=== PATIENT | female | born 1960 | race Caucasian/White ===

== ENCOUNTER 2017-12-14 16:27 | Emergency (ER) | payer MEDICARE, SELFPAY ==
[2017-12-14 16:28] VITALS: BP 128/67; PULSE 110; RESP 14; TEMP 37.1; O2SAT 99; BMI 18.5
--- NOTE | 2017-12-14 16:41 | RAD_ITS ---
STUDY: X-RAY - LEFT WRIST REASON FOR EXAM: Female, 57 years old. Injury. Dog bite. TECHNIQUE: 3 view(s) of the wrist were obtained. COMPARISON: 07/29/2017. FINDINGS: No acute fracture or dislocation. Old ununited fracture of the ulnar styloid. Deformity of the distal radial metaphysis with dorsal angulation of the articular surface, stable and related to previous fracture. No soft tissue air. No radiopaque foreign bodies. RAD/Wrist min 3 Views IMPRESSION: No acute abnormality or change. Electronically Signed: Bob Cintron MD at 20:06 EDT , Service support ,
[2017-12-14] MEDS: HYDROcodone Bitartrate/Apap 5/325 Tablet PO (16:46)
[2017-12-14] MEDS: Amox/Clavulanate 875 MG Tablet PO (16:47)
--- NOTE | 2017-12-14 16:50 | RAD_ITS ---
STUDY: X-RAY - RIGHT HAND REASON FOR EXAM: Female, 57 years old. Injury. TECHNIQUE: 3 view(s) of the hand. COMPARISON: None. FINDINGS: Normal radiocarpal articulation. Normal distal radioulnar joint. Normal visualized carpal bones. Normal carpal articulations Normal carpometacarpal articulation of the thumb. Normal second through fifth carpometacarpal joints. Normal metacarpi. Normal metacarpophalangeal joint of the thumb. Normal interphalangeal joint of the thumb. Normal proximal and distal phalanges of the thumb. Normal metacarpophalangeal joints of the second through fifth fingers. Normal proximal and distal interphalangeal joints of the second through fifth fingers. Normal phalanges of the second through fifth fingers. The soft tissue structures are unremarkable. RAD/Hand Min 3 Views IMPRESSION: Normal x-ray examination of the hand. Electronically Signed: Bob Cintron MD at 20:02 EDT , Service support ,
[2017-12-14] MEDS: Morphine 4 MG/ML Syringe IM (17:36)
--- NOTE | 2017-12-14 18:04 | ED.VISSUMM ---
- ER Visit Summary Date of Service: 12/14/17 Chief Complaint: [Dog bite left wrist] History of Present Illness: The patient is a 57 F [presents to the emergency department after sustaining a dog bite to her left wrist around midnight last night. Patient states that she got between HER-2 dogs were fighting and was bitten on the left wrist. Patient also states that yesterday she had a fall on her porch and skin her left knee and injured her right small finger and hand. Patient unsure of her last tetanus shot. Patient has been ambulatory. Patient is right-hand dominant.] Physical Examination: [HEENT-PERRLA, EOMI. Cranial nerves II through XII grossly intact. TMs clear. Mucous membranes moist. No adenopathy. Cardiovascular-regular rate and rhythm without murmur or ectopy Lungs-clear to auscultation, chest wall stable without crepitus or subcu emphysema Abdomen-normoactive bowel sounds, soft, nontender, no rebound or rigidity, no peritoneal signs. Extremities-intact ?4, normal range of motion, normal pulses. Left wrist-patient has puncture wound on the volar and dorsal aspect with soft tissue swelling noted. The puncture wound appears to be lateral to the ulnar artery as she has normal distal ulnar pulse and proximal. Patient has normal range of motion at the wrist with range of motion of all digits and normal sensation in all digits. Patient has normal cap refill. While occluding the radial artery patient still has normal cap refill in all digits. Patient has a small linear red streak from the volar aspect bite wound proximally up the forearm approximately 8 cm. Evaluation of the right hand-patient has some tenderness over the small finger PIP joint with no obvious deformity noted. Neurovascularly intact. Left knee-patient has superficial skin abrasions noted with no bony tenderness on exam. Neurovascularly intact. Test Results: [X-ray of the left wrist obtained read by myself because our teleradiology system is down and I do not appreciate any foreign bodies within the wound. X-rays of the right hand was interpreted by myself as well and I do not appreciate any fractures.] Emergency Department Course and Treatment: [Patient was started on Augmentin in the emergency department]. Patient was given Adacel. Patient was given [place] for pain and a shot of morphine. Case was discussed with Dr. Galileo Alvarez who is on for orthopedics and has seen this patient in the past. Dr. Galileo Alvarez asked that patient be seen in his office in 3 days. Treatment Plan: [Patient was given a wrist splint and will be given a prescription for [place] and Augmentin] Disposition: [Discharged home in stable condition] Impression: [Dog bite left wrist Right small finger sprain Left knee abrasion] This note was generated with [employer] dictation software. It may contain incorrect words, spelling, and punctuation that were not noted in review of the chart prior to signing ED Disposition - Plan for ED Patient: Chief Complaint: Bite Referrals: Rebeka Valle [Primary Care Provider] -
--- NOTE | 2017-12-14 18:13 | DCINST.ED_ITS ---
ED Disposition - Plan for ED Patient: Chief Complaint: Bite Instructions: ED Bite Dog, ED Sprain Finger, ED Abrasion Prescriptions: Amox/Clavulanate Tablet [Augmentin Tablet] 875 mg PO Q12H #20 tab Hydrocodone/Acetaminophen [[place] 5-325 Tablet] 1 - 2 ea PO 4X/DAY PRN PRN 5 Days #20 tab PRN Reason: Pain Referrals: [facility],Rebeka Dockery [Primary Care Provider] - Galileo Alvarez DO [STAFF PHYSICIAN] - 12/17/17
[2017-12-14] MEDS: Diphth,Pertuss(Acell),Tet Vac 0.5 ML Vial IM (18:18)
[2017-12-14 18:28] VITALS: BP 127/67; PULSE 82; RESP 18; O2SAT 96
== END 2017-12-14 18:28 | disposition home or self-care (01) ==
PROVIDERS: Emergency Provider Emergency Medicine
DX: S63.614A Unspecified sprain of right ring finger, initial encounter (principal); S80.212A Abrasion, left knee, initial encounter; W54.0XXA Bitten by dog, initial encounter; W18.30XA Fall on same level, unspecified, initial encounter; Y93.9 Activity, unspecified; Y92.009 Unspecified place in unspecified non-institutional (private) residence as the place of occurrence of the external cause; Y99.9 Unspecified external cause status; Z72.0 Tobacco use
CPT/HCPCS: 73110; 73130; 90471; 90715; 99283

== ENCOUNTER 2018-01-01 17:05 | Emergency (ER) | payer MEDICARE, SELFPAY ==
[2018-01-01 17:06] VITALS: BP 139/95; PULSE 103; RESP 16; TEMP 36.4; O2SAT 97; BMI 18.8
--- NOTE | 2018-01-01 17:10 | RAD_ITS ---
STUDY: X-RAY - RIGHT ELBOW REASON FOR EXAM: Female, 57 years old. Trauma TECHNIQUE: 3 view(s) of the elbow. COMPARISON: None. FINDINGS: Normal visualized humerus, radius and ulna. Normal radiocapitellar and ulnotrochlear articulations. The soft tissue structures are unremarkable. RAD/Elbow min 3 Views IMPRESSION: Normal x-ray examination of the elbow. Electronically Signed: Derian Bryant MD at 17:47 EDT , Service support ,
--- NOTE | 2018-01-01 17:10 | RAD_ITS ---
STUDY: X-RAY - RIGHT SHOULDER REASON FOR EXAM: Female, 57 years old. Trauma TECHNIQUE: 4 view(s) of the shoulder. COMPARISON: None. FINDINGS: Normal glenohumeral articulation. Normal acromioclavicular joint. Normal acromion. Normal humeral head and visualized proximal humerus. The soft tissue structures are unremarkable. Normal visualized pulmonary apex. RAD/Shoulder min 2 Views IMPRESSION: Normal x-ray examination of the shoulder. Electronically Signed: Derian Bryant MD at 17:56 EDT , Service support ,
--- NOTE | 2018-01-01 17:20 | RAD_ITS ---
STUDY: X-RAY - RIGHT HAND REASON FOR EXAM: Female, 57 years old. Trauma TECHNIQUE: 3 view(s) of the hand. COMPARISON: Previous study of 12/14/2017 FINDINGS: Normal radiocarpal articulation. Normal distal radioulnar joint. Normal visualized carpal bones. Normal carpal articulations Normal carpometacarpal articulation of the thumb. Normal second through fifth carpometacarpal joints. There is a nondisplaced spiral fracture of the fifth metacarpal shaft. Normal metacarpophalangeal joint of the thumb. Normal interphalangeal joint of the thumb. Normal proximal and distal phalanges of the thumb. Normal metacarpophalangeal joints of the second through fifth fingers. Normal proximal and distal interphalangeal joints of the second through fifth fingers. Normal phalanges of the second through fifth fingers. The soft tissue structures are unremarkable. RAD/Hand Min 3 Views IMPRESSION: Nondisplaced spiral fracture of the fifth metacarpal shaft. Electronically Signed: Derian Bryant MD at 17:48 EDT , Service support ,
--- NOTE | 2018-01-01 20:40 | RAD_ITS ---
STUDY: X-RAY - CERVICAL SPINE REASON FOR EXAM: Female, 57 years old. Trauma, neck pain TECHNIQUE: 4 view(s) of the cervical spine were obtained. COMPARISON: Previous study of December 13, 2016 FINDINGS: Normal anterior atlantoaxial articulation. Normal odontoid process. Normal cervical lordosis. There is endplate spondylosis of C3-C7. There is narrowing of the C4-5, C5-6, and C6-7 disc spaces. The soft tissue structures are unremarkable. RAD/Cerv Spine 2 or 3 Views IMPRESSION: Multilevel degenerative changes as detailed above. There is no evidence of fracture or subluxation. The degree of degenerative disease has slightly increased in severity from the previous study. Electronically Signed: Derian Bryant MD at 21:27 EDT , Service support ,
--- NOTE | 2018-01-01 20:59 | ED.DCSUM_ITS ---
- ER Visit Summary Date of Service: 01/01/18 Chief Complaint: Fall History of Present Illness: The patient is a 57 F who states she tripped on concrete and fell, landing on her right side. She is complaining of some neck pain, right shoulder pain, and right hand pain. She denies directly striking her head or loss of consciousness. She is not on anticoagulants. She is right- hand dominant. Physical Examination: Vital signs are unremarkable. Head and neck examination reveals no external sign of trauma. She does have reproducible tenderness in the low C-spine midline as well as in the paraspinals. Heart is regular rate and rhythm. Lung sounds are clear. There is no chest wall tenderness. Abdomen is soft nontender. Right upper extremity examination was a small abrasion to the right shoulder with full range of motion. There is no focal tenderness of the elbow on my exam. She does have tenderness with some mild edema over the fifth metacarpal region of the right hand. She has good cap refill and sensation distally. Left upper external examination reveals chronic deformity to the left wrist without focal pain. Lower extremity examination reveals a small abrasion to the left knee that patient states is prior fall. Test Results: Right hand x-rays reveal a nondisplaced spiral fracture the fifth metacarpal. Right elbow x-rays are unremarkable. Right shoulder x-rays unremarkable. C-spine x-rays revealed degenerative changes with no fracture. Emergency Department Course and Treatment: Patient was given a single type of [place] here. An ulnar gutter splint was placed on the right hand. Following splint application she has good cap refill in fingertips. Patient is known to Dr. Alvarez and will follow-up in the office. Treatment Plan: [] Disposition: Discharge Impression: Closed right fifth metacarpal fracture status post mechanical fall This note was generated with [employer] dictation software. It may contain incorrect words, spelling, and punctuation that were not noted in review of the chart prior to signing ED Disposition - Plan for ED Patient: Disposition: Home or Assisted Living Chief Complaint: Fall Instructions: ED Fx Hand Closed Prescriptions: Hydrocodone Bitart/Apap 5-325 [[place] 5MG-325MG] 1 tablet PO Q6H PRN PRN 5 Days # 20 tablet PRN Reason: Pain Referrals: Galileo Alvarez DO [STAFF PHYSICIAN] - 5-7 Days [facility],Rebeka Dockery [NON-STAFF] -
--- NOTE | 2018-01-01 20:59 | ED.DEP ---
ED Disposition - Plan for ED Patient: Disposition: Home or Assisted Living Chief Complaint: Fall Instructions: ED Fx Hand Closed Prescriptions: Hydrocodone Bitart/Apap 5-325 [[place] 5MG-325MG] 1 tablet PO Q6H PRN PRN 5 Days #20 tablet PRN Reason: Pain Referrals: [facility],Rebeka Dockery [Primary Care Provider] - Galileo Alvarez DO [STAFF PHYSICIAN] - 5-7 Days
--- NOTE | 2018-01-01 21:02 | DCINST.ED_ITS ---
ED Disposition - Plan for ED Patient: Disposition: Home or Assisted Living Chief Complaint: Fall Instructions: ED Fx Hand Closed Prescriptions: Hydrocodone Bitart/Apap 5-325 [[place] 5MG-325MG] 1 tablet PO Q6H PRN PRN 5 Days # 20 tablet PRN Reason: Pain Referrals: [facility],Rebeka Dockery [Primary Care Provider] - Galileo Alvarez DO [STAFF PHYSICIAN] - 5-7 Days
[2018-01-01] MEDS: HYDROcodone Bitartrate/Apap 5/325 Tablet PO (21:13)
--- NOTE | 2018-01-01 21:16 | ED.RN ---
DISCHARGE INSTRUCTIONS GIVEN TO AND REVIEWED WITH PATIENT, PATIENT DENIES QUESTIONS OR CONCERNS AND VOICES UNDERSTANDING OF DISCHARGE INSTRUCTIONS. PT AMBULATES OUT OF ROOM WITHOUT DIFFICULTY.
== END 2018-01-01 21:18 | disposition home or self-care (01) ==
PROVIDERS: Emergency Provider Emergency Medicine; Family Provider Nurse Practitioner Family; PCP Nurse Practitioner Family
DX: S62.356A Nondisplaced fracture of shaft of fifth metacarpal bone, right hand, initial encounter for closed fracture (principal); W01.0XXA Fall on same level from slipping, tripping and stumbling without subsequent striking against object, initial encounter; Y93.9 Activity, unspecified; Y92.89 Other specified places as the place of occurrence of the external cause; Y99.9 Unspecified external cause status; K21.9 Gastro-esophageal reflux disease without esophagitis; F32.9 Major depressive disorder, single episode, unspecified; F41.9 Anxiety disorder, unspecified; Z87.891 Personal history of nicotine dependence; S80.212A Abrasion, left knee, initial encounter; S40.211A Abrasion of right shoulder, initial encounter
CPT/HCPCS: 72040; 73030; 73080; 73130; 99283

== ENCOUNTER 2018-01-18 12:26 | Emergency (ER) | payer MEDICARE, SELFPAY ==
--- NOTE | 2018-01-18 12:26 | DT_ITS ---
This patient was seen during an EMR downtime January 11, 2018 - January 18, 2018. This patient may have a combination of paper and electronic documentation or all paper documentation. All documentation is viewable within the e-chart portion of [employer] for each patient visit.
[2018-01-18 12:27] VITALS: BP 122/85; PULSE 87; RESP 16; TEMP 36.1; O2SAT 100; BMI 18.8
--- NOTE | 2018-01-18 13:55 | ED.VIS.GEN ---
History of Present Illness Chief Complaint: Upper Extremity Injury Informant: Patient Onset: Weeks - 2 Quality: ache/sore Location: R hand Current Severity: Moderate Maximum Severity: Moderate Worsened by: n/a Relieved by: n/a Associated Symptoms: wound Narrative: Patient states that she broke her right fifth metacarpal and was casted 2 weeks ago after being seen in the ER, and since having the cast has developed wounds from the cast rubbing on other areas of her hand. Pain is increased because of this. She has been using Tylenol with codeine but not helping much. Try to call orthopedics but no one was available. No fevers or new symptoms. - Past Medical History (1) Anxiety Status: Chronic (2) Depression Status: Chronic (3) GERD (gastroesophageal reflux disease) Status: Chronic (4) Generalized-onset seizures Status: Chronic (5) History of Herniated Lumbar Disc Status: Chronic (6) Panic attacks Status: Chronic Past Medical History - Allergies and Home Meds Allergies/Adverse Reactions: Allergies ciprofloxacin [From Cipro] Allergy (Verified 12/14/17 16:28) Itching ciprofloxacin HCl [From Cipro] Allergy (Verified 12/14/17 16:28) Itching Sulfa (Sulfonamide Antibiotics) Allergy (Verified 12/14/17 16:28) Itching Primary Care Physician: Asuncion Vásquez DO [STAFF PHYSICIAN] - (tomorrow at 8am) Surgical History: no surgical history Smoking Status: Former smoker Review of Systems General: Denies: Chills, Fever Musculoskeletal: Reports: Extremity Pain - right hand Skin: Reports: Wounds Neurological: Reports: Parasthesia - hand but not fingers Physical Exam Vital Signs/Narrative: Vital Signs Temp Pulse Resp BP Pulse Ox 01/18/18 12:27 97.0 F L 87 16 122/85 H 100 Inital Vital Signs reviewed: Yes General: Well nourished, Well developed Head: Normocephalic, Atraumatic Skin: Normal color, - - ulcerated, tender but not infected wound 1cm diam at ulnar aspect of right long finger, where nearby cast is rubbing / placing pressure. no other wounds. Diagnostic/Tx/Re-eval - Medical Decision Making After discussing with Dr. De Jesus, who stated it was okay to remove the cast, I removed the cast. There is a small closed mechanical blister on the volar aspect of the thumb where the cast was also rubbing, however it appears benign otherwise. The wound on her long finger is dressed with bacitracin, and I replaced the cast with a Ortho-Glass splint, there is soft material against/near this ulcerated wound on her long finger. She will follow-up with orthopedics as an outpatient. Procedures - Upper Extremity Splints Upper Extremity Splint: Orthoglass, Ulnar gutter - NVID after placement Splint Fabrication: Fabricated Location: Right Procedure(s): Cast removal w/ cast saw -- no signs of skin breakdown, no other skin lesions seen. ED Disposition - Plan for ED Patient: Disposition: Home or Assisted Living Chief Complaint: Upper Extremity Injury Diagnosis: Open wound of finger of right hand, Cast discomfort, Closed fracture of fifth metacarpal bone of right hand Instructions: Wound Care, ED Splint Care Plaster Prescriptions: Hydrocodone Bitart/Apap 5-325 [[place] 5MG-325MG] 1 tab PO Q4H PRN PRN 1 Days #6 tab PRN Reason: Pain Referrals: Asuncion Vásquez DO [STAFF PHYSICIAN] - (tomorrow at 8am, or may follow up w/ Dr. Alvarez within next 1-2 weeks)
--- NOTE | 2018-01-18 14:04 | ED.DCSUM_ITS ---
History of Present Illness Chief Complaint: Upper Extremity Injury Informant: Patient Onset: Weeks - 2 Quality: ache/sore Location: R hand Current Severity: Moderate Maximum Severity: Moderate Worsened by: n/a Relieved by: n/a Associated Symptoms: wound Narrative: Patient states that she broke her right fifth metacarpal and was casted 2 weeks ago after being seen in the ER, and since having the cast has developed wounds from the cast rubbing on other areas of her hand. Pain is increased because of this. She has been using Tylenol with codeine but not helping much. Try to call orthopedics but no one was available. No fevers or new symptoms. - Past Medical History (1) Anxiety Status: Chronic (2) Depression Status: Chronic (3) GERD (gastroesophageal reflux disease) Status: Chronic (4) Generalized-onset seizures Status: Chronic (5) History of Herniated Lumbar Disc Status: Chronic (6) Panic attacks Status: Chronic Past Medical History - Allergies and Home Meds Allergies/Adverse Reactions: Allergies ciprofloxacin [From Cipro] Allergy (Verified 12/14/17 16:28) Itching ciprofloxacin HCl [From Cipro] Allergy (Verified 12/14/17 16:28) Itching Sulfa (Sulfonamide Antibiotics) Allergy (Verified 12/14/17 16:28) Itching Primary Care Physician: Asuncion Vásquez DO [STAFF PHYSICIAN] - (tomorrow at 8am) Surgical History: no surgical history Smoking Status: Former smoker Review of Systems General: Denies: Chills, Fever Musculoskeletal: Reports: Extremity Pain - right hand Skin: Reports: Wounds Neurological: Reports: Parasthesia - hand but not fingers Physical Exam Vital Signs/Narrative: Vital Signs Temp Pulse Resp BP Pulse Ox 01/18/18 12:27 97.0 F L 87 16 122/85 H 100 Inital Vital Signs reviewed: Yes General: Well nourished, Well developed Head: Normocephalic, Atraumatic Skin: Normal color, - - ulcerated, tender but not infected wound 1cm diam at ulnar aspect of right long finger, where nearby cast is rubbing / placing pressure. no other wounds. Diagnostic/Tx/Re-eval - Medical Decision Making After discussing with Dr. De Jesus, who stated it was okay to remove the cast , I removed the cast. There is a small closed mechanical blister on the volar aspect of the thumb where the cast was also rubbing, however it appears benign otherwise. The wound on her long finger is dressed with bacitracin, and I replaced the cast with a Ortho-Glass splint, there is soft material against/ near this ulcerated wound on her long finger. She will follow-up with orthopedics as an outpatient. Procedures - Upper Extremity Splints Upper Extremity Splint: Orthoglass, Ulnar gutter - NVID after placement Splint Fabrication: Fabricated Location: Right Procedure(s): Cast removal w/ cast saw -- no signs of skin breakdown, no other skin lesions seen. ED Disposition - Plan for ED Patient: Disposition: Home or Assisted Living Chief Complaint: Upper Extremity Injury Diagnosis: Open wound of finger of right hand, Cast discomfort, Closed fracture of fifth metacarpal bone of right hand Instructions: Wound Care, ED Splint Care Plaster Prescriptions: Hydrocodone Bitart/Apap 5-325 [[place] 5MG-325MG] 1 tab PO Q4H PRN PRN 1 Days #6 tab PRN Reason: Pain Referrals: Asuncion Vásquez DO [STAFF PHYSICIAN] - (tomorrow at 8am, or may follow up w/ Dr. Alvarez within next 1-2 weeks)
[2018-01-18] MEDS: HYDROcodone Bitartrate/Apap 5/325 Tablet PO (14:12)
== END 2018-01-18 15:22 | disposition home or self-care (01) ==
PROVIDERS: Emergency Provider Emergency Medicine; Family Provider Family Medicine; PCP Family Medicine
DX: S62.304G Unspecified fracture of fourth metacarpal bone, right hand, subsequent encounter for fracture with delayed healing (principal); X58.XXXD Exposure to other specified factors, subsequent encounter; F41.9 Anxiety disorder, unspecified; F32.9 Major depressive disorder, single episode, unspecified; K21.9 Gastro-esophageal reflux disease without esophagitis; F41.0 Panic disorder [episodic paroxysmal anxiety]; Z87.891 Personal history of nicotine dependence
CPT/HCPCS: 99283

== ENCOUNTER → 2018-01-27 12:52 | Outpatient (CLI) | payer MEDICARE, SELFPAY ==
--- NOTE | 2018-01-27 12:58 | RAD_ITS ---
STUDY: X-RAY - RIGHT HAND REASON FOR EXAM: Female, 57 years old. Follow-up TECHNIQUE: 3 view(s) of the hand. COMPARISON: January 01, 2018 FINDINGS: There is a healing or healed fracture involving the midshaft of the fifth metacarpal bone with callus formation around the fracture. The rest of the bones of the hand normal RAD/Hand Min 3 Views IMPRESSION: A healing or healed spiral fracture involving the midshaft of the fifth metacarpal bone Electronically Signed: Johan Boo, at 6:49 EDT Tel , Service support ,
== END ==
PROVIDERS: Family Provider Family Medicine; PCP Family Medicine; Visit Provider Orthopaedic Surgery
DX: S62.329A Displaced fracture of shaft of unspecified metacarpal bone, initial encounter for closed fracture (principal)
CPT/HCPCS: 73130; 97165; 97760; G8987; G8988

== ENCOUNTER 2018-02-04 13:00 | Outpatient (RCR) | payer MEDICARE, SELFPAY ==
--- NOTE | 2018-01-29 08:15 | HP.OTEVAL_ITS ---
Patient's Visit Information PAULY BAH is a 57 year old F, referred to Occupational Therapy by Galileo Alvarez DO, with a diagnosis of right 5th metacapal fx. Date of Evaluation: 01/27/18 Occupational Therapist: Deonna Farr, MELLY/Quintin, CHT - Subjective Subjective: Pt arrives to OT session with dx of right 5th MCP fx and in need of custom orthosis. pt states she had broken her hand on 01/01/18 after falling on the sidewalk. pt states her hand is painful at times but otherwise she feels ok. states she is having increase difficulty with BADLS while fx is healing. - Pain right hand 2 - ROM ROM Comments: not formally tested due to healing fx - Strength Strength Comments: not formally tested due to healing fx - Sensation Sensation Comments: denies - Goals Goal:: pt will demo ind. donning and doffing of custom orthosis by end of 1st session. pt will demo understanding of orthosis precaustions, use and care instructions. - Rehabilitation General Assessment: pt demo need for custom orthosis for right 5th metacapal fx. Today therapist gunnar. custom orthosis and instructed pt in use, care and precautions of orthosis use. pt demo understanding. Therapy scheduled one more follow up therapy session to assure orthosis is fitting well and pt is using correctly. Rehabilitation Potential: Good - Anticipated Interventions Anticipated Interventions: Orthoses, Home Program Other Interventions: orthosis use - Visit Plan TEXT: Thank you for the opportunity to evaluate your patient. For Medicare and Medicare HMO plans, please review the plan of care and approve it. It will need to be FAXED BACK to us at [phone] for Medicare purposes. Please let me know if there are questions or concerns regarding this plan of care. Physician Signature: Date:
--- NOTE | 2018-04-05 15:01 | HP.OTDCSUM_ITS ---
HP - OT D/C Summary It has been my pleasure to treat PAULY BAH under orders from Galileo Alvarez DO, for the diagnosis of right 5th metacapal fx for a total of 2 visit(s). Please see the following information for a summary of their discharge status. - Objective Objective/Function: pt demo understanding of use of orthosis for right 5th fx. pt demo ind. donning doffing of orthosis- ed. pt on need for powder or watch sweat between fingers- ( signs of skin break down) - Goals Patient Goals: Regain Mobility, Use Hand/Wrist/Arm Normally Again Goal:: pt will demo ind. donning and doffing of custom orthosis by end of 1st session. pt will demo understanding of orthosis precaustions, use and care instructions. - Plan Plan: pt d/c with [facility] - D/C Information If there are questions or concerns regarding this patient's occupational therapy , please fell free to call me at [phone]. Thank you for the referral of this patient. Sincerely, Deonna Farr, OTR/L, CHT
== END 2018-02-04 19:00 | disposition home or self-care (01) ==
LOC: OT 13:00
PROVIDERS: Family Provider Family Medicine; PCP Family Medicine; Visit Provider Orthopaedic Surgery
DX: S62.306D Unspecified fracture of fifth metacarpal bone, right hand, subsequent encounter for fracture with routine healing (principal)
CPT/HCPCS: 97165; 97760; 97763; G8987; G8988

== ENCOUNTER 2018-02-19 15:19 | Emergency (ER) | payer MEDICARE, SELFPAY ==
[2018-02-19 15:20] VITALS: BP 119/73; PULSE 92; RESP 16; TEMP 36.8; O2SAT 99; BMI 18.8
--- NOTE | 2018-02-19 15:35 | RAD_ITS ---
STUDY: X-RAY - THORACIC SPINE REASON FOR EXAM: Female, 57 years old. Recent fall and back pain TECHNIQUE: 4 view(s) of the thoracic spine were obtained. COMPARISON: None. FINDINGS: Normal kyphosis of the thoracic spine. There is no substantial scoliosis. Normal thoracic vertebrae and endplates. Normal disc space heights. The soft tissue structures are unremarkable. RAD/Thoracic Spine 3 Views IMPRESSION: Normal x-ray examination of the thoracic spine. Electronically Signed: Eber Ge MD at 16:23 EDT , Service support ,
[2018-02-19] MEDS: Naproxen 500 MG Tablet PO (15:45)
--- NOTE | 2018-02-19 15:53 | RAD_ITS ---
STUDY: X-RAY - RIGHT HAND REASON FOR EXAM: Female, 57 years old. History of fractures 7 weeks ago. TECHNIQUE: 3 view(s) of the hand. COMPARISON: January 27, 2018 FINDINGS: Normal radiocarpal articulation. Normal distal radioulnar joint. Oblique nondisplaced fracture fifth metacarpal with periosteal/callus formation. Normal carpal articulations Normal carpometacarpal articulation of the thumb. Normal second through fifth carpometacarpal joints. Normal metacarpi. Normal metacarpophalangeal joint of the thumb. Normal interphalangeal joint of the thumb. Normal proximal and distal phalanges of the thumb. Normal metacarpophalangeal joints of the second through fifth fingers. Normal proximal and distal interphalangeal joints of the second through fifth fingers. Normal phalanges of the second through fifth fingers. The soft tissue structures are unremarkable. RAD/Hand Min 3 Views IMPRESSION: A healing fracture fifth metacarpal unchanged in alignment. Electronically Signed: Eber Ge MD at 16:45 EDT , Service support ,
--- NOTE | 2018-02-19 17:27 | ED.VISSUMM ---
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 She reports that she broke her right fifth metacarpal approximately 6 weeks ago. She is seeing Dr. Alvarez for this and had her cast removed approximately 2 weeks ago. States that she is in a splint and she is supposed take this off and try to use her hand every hour. She reports that she has had much worsened pain with this. She reports her pain is 9 out of 10 severity. It is aching. It is increased with movement. She has taken tramadol with no relief. However, she reports that she ran out of tramadol yesterday. She denies any numbness or tingling. Patient reports that she fell last week. She did not have a loss of consciousness. But she complains of thoracic back pain since that time. It is a continuous aching pain. Is 10 at 10 at worst 910 currently. Is worsened by movement of her arms. She relieved by heating pad. There is no radiation to her arms or her legs. She denies any numbness or weakness. No problems with her bowels or bladder. No groin numbness. Physical Examination: Vitals: Stable. Afebrile. Neck: No vertebral tenderness. Full ROM without difficulty. Cleared by NEXUS criteria. Back: No vertebral tenderness. Mild sinus palpation over the paraspinous muscular in the right thoracic region. General: A&O x 3. NAD. Cardiovascular exam: Regular rate and rhythm, no murmur, rub or gallop. Respiratory exam: Chest nontender. No crepitus. Clear to auscultation bilaterally. No wheezes or stridor. Abdominal exam: Soft, nontender, nondistended, normal bowel sounds. No pain in RUQ or LUQ specifically. No peritoneal signs. Extremity: Moderate tenderness palpation over the right fifth metacarpal. She is neurovascular intact distal this. There is no soft tissue swelling or ecchymosis.. Test Results: Right hand x-ray shows a healing fracture of the fifth metacarpal without a change in alignment. X-ray of her thoracic spine is normal. Emergency Department Course and Treatment: An [facility] report was obtained which shows that 13 prescriptions for opiates in the last year. The last was February [address] Alvarez and it was for 60 tramadol. Patient is treated with naproxen here. Treatment Plan: This point patient will be discharged prescription for 20 tramadol and naproxen. Follow up with Dr. Alvarez as soon as possible. Return to the emergency department for any worsening symptoms. Disposition: To home in improved and stable condition. Impression: 1. Right fifth metacarpal fracture, repeat visit. 2. Thoracic back strain. This note was generated with [employer] dictation software. It may contain incorrect words, spelling, and punctuation that were not noted in review of the chart prior to signing ED Disposition - Plan for ED Patient: Disposition: Home or Assisted Living Chief Complaint: Upper Extremity Injury Instructions: ED Fx Hand Closed, ED Neck Back Pain General Referrals: Galileo Alvarez DO [STAFF PHYSICIAN] - Keep Pablo appointment
[2018-02-19 17:33] VITALS: BP 136/82; PULSE 88; RESP 16; O2SAT 98
[2018-02-19] MEDS: traMADol 50 MG Tablet 100 MG PO (17:37)
== END 2018-02-19 17:39 | disposition home or self-care (01) ==
PROVIDERS: Emergency Provider Emergency Medicine; Family Provider Family Medicine; PCP Family Medicine
DX: S62.306G Unspecified fracture of fifth metacarpal bone, right hand, subsequent encounter for fracture with delayed healing (principal); S29.012D Strain of muscle and tendon of back wall of thorax, subsequent encounter; W19.XXXD Unspecified fall, subsequent encounter; R51 Headache; R05 Cough; F17.210 Nicotine dependence, cigarettes, uncomplicated; F32.9 Major depressive disorder, single episode, unspecified
CPT/HCPCS: 72072; 73130; 99284

== ENCOUNTER → 2018-02-22 14:29 | Outpatient (CLI) | payer MEDICARE, SELFPAY ==
--- NOTE | 2018-02-22 14:37 | RAD_ITS ---
STUDY: X-RAY - LUMBOSACRAL SPINE REASON FOR EXAM: Female, 57 years old. Intervertebral disc degeneration TECHNIQUE: 7 view(s) of the lumbosacral spine were obtained. Flexion-extension views are provided. COMPARISON: March 10, 2017 lumbar spine x-ray FINDINGS: Normal lumbar lordosis. There is no substantial scoliosis. There is normal alignment of the vertebrae. There is no evidence of abnormal alignment with flexion or extension. There is trace spondylosis. Normal disc space heights. Normal bilateral sacral ala, sacroiliac joints, and visualized sacrum. There is a rudimentary disc at the level of S1-S2 or a transitional vertebral body. On the flexion and extension views there is visualization of calcification in the upper quadrants. RAD/L/S Spine Comp/w Bending Views IMPRESSION: Stable lumbar spine minimal radiographically visualized degenerative change. No evidence of loss of alignment with the flexion and extension views provided. There is calcification seen on lateral view only within the mid abdomen. Recommend correlation with abdominal symptoms. Electronically Signed: Shabnam Kimble MD at 21:49 EDT Tel , Service support ,
--- NOTE | 2018-02-22 14:45 | RAD_ITS ---
STUDY: X-RAY - CERVICAL SPINE REASON FOR EXAM: Female, 57 years old. Degenerative disc disease TECHNIQUE: 9 view(s) of the cervical spine were obtained. COMPARISON: December 13, 2016 cervical spine x-ray FINDINGS: There are degenerative changes of the anterior atlantoaxial articulation. The open-mouth view is limited. There is straightening of the normal cervical lordosis. There is multilevel spondylosis. There is disc space narrowing C4-C5 C5-C6. Flexion-extension views are provided. There is slight retrolisthesis with a good extension at the level C4-C5. There is no significant change in alignment with the flexion image provided. Allowing for the obliquity there is mild narrowing of the left greater than right C4-C5 levels neural foraminal narrowing. There is some uncovertebral hypertrophy. The soft tissue structures are unremarkable. RAD/Cerv Spine Obl/Flex/Ext Comp IMPRESSION: Degenerative change. Straightening of the physiologic lordosis can be associated muscle spasm or pain. Slight retrolisthesis C4-C5 with a exaggerated extension effort. Electronically Signed: Shabnam Kimble MD at 21:40 EDT Tel , Service support ,
== END ==
PROVIDERS: Family Provider Family Medicine; PCP Family Medicine
DX: M51.37 Other intervertebral disc degeneration, lumbosacral region (principal); M50.320 Other cervical disc degeneration, mid-cervical region, unspecified level
CPT/HCPCS: 72052; 72114

== ENCOUNTER → 2018-04-01 13:29 | Outpatient (CLI) | payer MEDICARE, SELFPAY | PROVIDERS: Family Provider Family Medicine; PCP Family Medicine; Visit Provider Orthopaedic Surgery | DX: S62.306A Unspecified fracture of fifth metacarpal bone, right hand, initial encounter for closed fracture (principal) | CPT/HCPCS: 73130 ==